=== PATIENT | female | born 1980 ===

== ENCOUNTER 2017-12-26 10:41 | Emergency (ER) | payer OTHER ==
[2017-12-26 10:51] VITALS: RESP 18
[2017-12-26] MEDS ORDERED: Sodium Chloride 0.9% 1,000 ML IV ONE (11:00)
[2017-12-26 11:37] LABS: BASO % 0.3 % (0.0-2.0); EOS % 0.4 % (0.0-4.0); LYMPH # 1.3 K/uL (1.0-4.3); LYMPH % 9.9 % (20.0-40.0); MEAN CORPUSCULAR HEMOGLOBIN 21.5 pg (27.0-31.0); MEAN CORPUSCULAR HGB CONC 32.1 g/dL (33.0-37.0); MEAN PLATELET VOLUME 9.1 fL (7.2-11.7); MONO # 0.8 K/uL (0.0-0.8); MONO % 6.2 % (0.0-10.0); NEUT # 11.2 K/uL (1.8-7.0); NEUT % 83.2 % (50.0-75.0); PLATELET COUNT 285 K/uL (130-400); RBC 4.64 Mil/uL (3.80-5.20); RED CELL DISTRIBUTION WIDTH 19.5 % (11.5-14.5); WHITE BLOOD COUNT 13.4 K/uL (4.8-10.8)
[2017-12-26 11:45] LABS: HCG,QUALITATIVE URINE NEGATIVE (NEGATIVE)
[2017-12-26 11:55] LABS: ALB/GLOB RATIO 0.9 (1.0-2.1); ALBUMIN 4.1 g/dL (3.5-5.0); ALT/SGPT 21 U/L (9-52); AST/SGOT 26 U/L (14-36); BLOOD UREA NITROGEN 11 mg/dL (7-17); CALCIUM 8.5 mg/dl (8.6-10.4); GFR AFRICAN-AMERICAN > 60; GFR NON-AFRICAN AMERICAN > 60; SQUAMOUS EPITHIAL 36 /hpf (0-5); URINE BACTERIA OCC (<OCC); URINE BILIRUBIN NEGATIVE (NEGATIVE); URINE BLOOD 1+ (NEGATIVE); URINE CLARITY Hazy (Clear); URINE COLOR Yellow (YELLOW); URINE GLUCOSE (UA) NORMAL (Normal); URINE LEUKOCYTE ESTERASE 3+ Leu/uL (Negative); URINE PROTEIN 2+ mg/dL (NEGATIVE)
--- NOTE | 2017-12-26 12:27 | C.PDOC ---
History Of Present Illness 37 y/o female presents to ED for evaluation of diffuse low back pain and suprapubic pain associated with dysuria and urinary frequency for 2 days. Patient reports chills since early today. Otherwise, pt denies fever, sore throat, drooling, neck pain, chest pain, sob, cough, palpitation, nausea, vomiting, hematuria, vaginal irritation or discharges, denies any other complaints at this time. Ambulate to Ed for evaluation, not in any apparent distress. Time Seen by Provider: 12/26/17 10:58 Chief Complaint (Nursing): Back Pain History Per: Patient History/Exam Limitations: no limitations Onset/Duration Of Symptoms: Days Current Symptoms Are (Timing): Still Present Quality Of Discomfort: "Pain" Past Medical History Reviewed: Historical Data, Nursing Documentation, Vital Signs Vital Signs: Last Vital Signs Temp 99.0 F 12/26/17 13:30 Pulse 81 12/26/17 13:30 Resp 18 12/26/17 13:30 BP 114/71 12/26/17 13:30 Pulse Ox 98 12/26/17 13:30 - Medical History PMH: No Chronic Diseases Surgical History: - [facility] INJECT/INFUSE NEC (04/30/14) Family History: States: Diabetes, Hypertension - Social History Hx Alcohol Use: No Hx Substance Use: No Review Of Systems Constitutional: Negative for: Fever, Chills Gastrointestinal: Positive for: Abdominal Pain. Negative for: Nausea, Vomiting Genitourinary: Positive for: Dysuria, Frequency. Negative for: Hematuria, Vaginal Discharge Musculoskeletal: Positive for: Back Pain Skin: Negative for: Rash Physical Exam - Physical Exam Appears: Non-toxic, No Acute Distress Skin: Warm, Dry, No Rash Head: Normacephalic Eye(s): bilateral: PERRL Ear(s): Bilateral: Normal Nose: No Flaring, No Discharge Oral Mucosa: Moist, No Drooling Throat: No Erythema, No Drooling Neck: Trachea Midline, Supple Cardiovascular: Rhythm Regular Respiratory: No Decreased Breath Sounds, No Accessory Muscle Use, No Rales, No Rhonchi, No Wheezing Gastrointestinal/Abdominal: Soft, Tenderness (suprapubic, mod), No Guarding, No Rebound Back: No CVA Tenderness, No Vertebral Tenderness, Paraspinal Tenderness (lumbar) Extremity: Normal ROM, No Deformity, No Swelling Neurological/Psych: Oriented x3, Normal Speech, Normal Cognition, Normal Motor, Normal Sensation ED Course And Treatment - Laboratory Results Result Diagrams: 12/26/17 11:32 12/26/17 11:32 Urine POC: Negative O2 Sat by Pulse Oximetry: 99 (RA) Pulse Ox Interpretation: Normal Progress Note: On re-eval, pt is afebrile, hemodynamicaly stable. NOn-toxic. Pt reports, moderate improvement in pain. Tolerate po well in ED. PulsEOx 99% RA. ENT: no acute findings. neck: SUpple, (-) meningeal sign. Lungs: CTA B/L , BS equal B/L. ABd: benign, (-) guarding, (-) rebound, (-) localized tenderness. Back: (-) CVA tenderness. Neurologicaly intact. Bood work review , mild leukocytosis w/left shift. UA (+) WBC, RBC c/w UTI. Pt has clinical findings c/w UTI r/o early pyelonephritis. Pt advised. ref. to f/u with PMD, nephrology in 2-3 dyas for re-evaluation. return [facility] ED if any worsening or new changes. Disposition Counseled Patient/Family Regarding: Studies Performed, Diagnosis, Need For Followup, Rx Given - Disposition Referrals: [facility] [Outside] Disposition: HOME/ ROUTINE Disposition Time: 12:41 Condition: STABLE Additional Instructions: Encourage fluids Take medication as prescribed Follow up with PMD in 2-3 days for re-evaluation. Return to ED if any worsening or new changes. Prescriptions: Cefdinir [Omnicef] 300 mg PO BID #20 cap Cranberry 500 mg PO DAILY #20 capsule Ibuprofen [Motrin Tab] 600 mg PO TID #20 tab traMADol [Ultram] 50 mg PO TID #7 tab Instructions: Urinary Tract Infections in Adults, Kidney Infection (DC) Forms: [facility] (Austrian), Work Excuse Print Language: MALDIVIAN - Clinical Impression Clinical Impression: UTI (urinary tract infection), Pyelonephritis - PA / [employer] / Resident Statement MD/DO has reviewed & agrees with the documentation as recorded. - Scribe Statement The provider has reviewed the documentation as recorded by the Ana Rosa Mueller All medical record entries made by the Huangibrangel were at my direction and personally dictated by me. I have reviewed the chart and agree that the record accurately reflects my personal performance of the history, physical exam, medical decision making, and the department course for this patient. I have also personally directed, reviewed, and agree with the discharge instructions and disposition.
[2017-12-26 12:31] LABS: ANISOCYTOSIS MODERATE; HYPOCHROMIC MODERATE; LYMPHOCYTE 10 % (20-40); MICROCYTOSIS SLIGHT; MONOCYTE 5 % (0-10); NEUTROPHIL 85 % (50-75); PLATELET ESTIMATE NORMAL (NORMAL); TOTAL CELLS COUNTED 100
[2017-12-26 12:32] LABS: OVALOCYTES SLIGHT
[2017-12-26] MEDS ORDERED: cefTRIAXone IV 1 gm in Dextros 50 ML IVPB ONE (12:50)
[2017-12-26 13:31] VITALS: BP 114/71; PULSE 81; TEMP 99
[2017-12-26 18:08] VITALS: O2SAT 99
== END 2017-12-26 13:54 | disposition home or self-care (01) ==
LOC: C.ER 10:41
DX: N39.0 Urinary tract infection, site not specified (principal); N12 Tubulo-interstitial nephritis, not specified as acute or chronic
CPT/HCPCS: 80053; 81001; 84703; 85025; 87040; 87086; 87181; 96361; 96365; 96375; 99284; J0696; J1885; J7030